=== PATIENT | female | born 1970 | race Two or more races ===

== ENCOUNTER → 2018-06-17 | Outpatient (CLI) | payer OTHER ==
--- NOTE | 2018-06-17 18:04 | RAD ---
Right hip 2 views with one view pelvis. HISTORY: Trouble walking on right leg, right hip and iliac crest pain Pelvis Single view was taken of the pelvis. There is no pelvic fracture or acute osseous abnormality. Left hip appears unremarkable. There is minimal hypertrophic change at the right SI joint. Right hip AP and lateral views were taken of of the right hip. There is no fracture or osseous abnormality. IMPRESSION: 1. Negative right hip. 2. Slight right SI joint arthritis. 3. Otherwise negative pelvis. Electronically signed by: Brent Staples MD (06/17/2018 6:01 PM) [facility]
== END | disposition home or self-care (01) ==
LOC: RAD 16:25
PROVIDERS: ATTEND Family Medicine
DX: M46.1 Sacroiliitis, not elsewhere classified (principal); M53.3 Sacrococcygeal disorders, not elsewhere classified
CPT/HCPCS: 73502